=== PATIENT | male | born 1980 | race Caucasian/White ===

== ENCOUNTER → 2018-10-13 07:45 | Day surgery (SDC) | payer OTHER ==
[~2018-10-13 07:45] MED LIST: Bacitracin OINTMENT* 0.5% 0.5 oz TUBE ONE; Buffered Lidocaine 1% SYRIN* 1 ML/SYRINGE INTRADERM ONE; Bupivacaine 0.25% EPI 200,000* 30 ML SDV ONE; Dexamethasone IV* 4 MG/ML 1 ML (4 MG) ONE; DiMENhydriNATE IV* 50 MG/ML VIAL IV PUSH PRN; DiMENhydriNATE IV* 50 MG/ML VIAL ONE; Famotidine IV* 10 MG/ML 2 ML (20 mg) IV ONE; Famotidine IV* 10 MG/ML 2 ML (20 mg) ONE; HYDROmorphone INJ1* 1 MG/ML SYRINGE ONE; Ketorolac INJ* 30 MG/ML 1 ML VIAL ONE; Lactated Ringers 1000 ML Bag* 1,000 ML IV SCH; Lidocaine 2% PF * 5 ML VIAL ONE; Midazolam* 1 MG/ML 5 ML VIAL (5 MG) ONE; Naloxone* 0.4 MG/ML 1 ML VIAL IV PRN; Ondansetron INJ* 2 MG/ML VIAL ONE; Propofol* 10 MG/ML 20 ML BTL ONE; Succinylcholine* 20 MG/ML 10 ML VIAL ONE; ceFAZolin 2 GM in NS PREMIX(*) 2 GM/100 ML BAG IVPB ONE; fentaNYL* 50 MCG/ML 2 ML VIAL (100 MCG VIAL) ONE; oxyCODONE/Acetamin 5/325 MG* TAB PO PRN
[2018-10-13] MEDS: HYDROmorphone INJ1* 1 MG/ML SYRINGE IV PRN ×2 (12:05→12:13)
[2018-10-13 12:49] VITALS: BP 111/65
--- NOTE | 2018-10-13 21:21 | OP ---
CC: Dr. Vera [facility]; [facility] * DATE OF OPERATION: 10/13/18 - [facility] DATE OF : 82 SURGEON: Alfonso Peguero MD FLEET OPERATIONS MANAGER: Luz Maria Hanson NP ANESTHESIOLOGIST: Dr. Blancas. ANESTHESIA: General anesthesia. PRE-OP DIAGNOSIS: Left inguinal hernia. POST-OP DIAGNOSIS: Left inguinal hernia. OPERATIVE PROCEDURE: Laparoscopic left inguinal hernia repair with mesh. ESTIMATED BLOOD LOSS: Minimal. FLUIDS: Minimal crystalloid fluid given. SPECIMEN: None. DESCRIPTION OF PROCEDURE: The patient was identified in the preoperative area. He was marked accordingly. He voided, and was able to go to the operating room, placed on the operating table in supine position. Preoperative antibiotics given. Sequential devices were placed in bilateral lower extremities. General anesthesia was induced. The patient's abdomen, which had been clipped of hair, was then prepped and draped in the standard surgical fashion. Infraumbilical incision was made. This was deepened down to the anterior fascia on the right. This was incised and the rectus pillar retracted laterally. Blunt dissection was carried out with surgeon's finger, opening up the preperitoneal plane and the 12 mm trocar was then inserted through this. Laparoscope was inserted and it was clear we did not do significant dissection proximally, but the patient has a long distance to the pubic symphysis and we were able to bluntly dissect down into the lower portions of the preperitoneal space that we had made enough that we could see appropriately. We then placed two 5 mm trocars along the lower midline and then continued our dissection clearing Vladimir fascia both on the left and right side and then extending our attention more to the left side. The epigastric vessels were identified and maintained anteriorly. There was no evidence of direct inguinal hernia. The space of Bogros space was cleared laterally and then with gentle traction on the hernia sac extending along the inguinal canal, we were able to free up the hernia sac along with lipoma. The spermatic cord was identified along with the spermatic structures. We then placed a large Bard 3D Max mesh into the preperitoneal plane and tacked in the appropriate fashion at Vladimir ligament on the left and also laterally staying it free from the vessels. The mesh covered the full myopectineal orifice and lay flat in the appropriate fashion. The preperitoneal plane was then allowed to collapse. Trocars were removed under direct vision and the anterior fascia at the port site was closed with a 0-Vicryl suture in a [id number] fashion and the 3-inch skin incisions were reapproximated with 4-0 Monocryl subcuticular sutures followed by Steri-Strips and sterile dressing. The patient tolerated the procedure well and was awoken up in the OR and transferred to the PACU in stable condition. [id number]/[facility] #: [id number] EDILMA
== END | disposition home or self-care (01) ==
LOC: OR 07:45
PROVIDERS: ATTEND Surgery
DX: K40.90 Unilateral inguinal hernia, without obstruction or gangrene, not specified as recurrent (principal); Z87.891 Personal history of nicotine dependence
CPT/HCPCS: A9270-GY; C1781; J0330; J0690; J1100; J1170; J1240; J1885; J2250; J2405; J2704; J3010